=== PATIENT | female | born 1945 | race Caucasian/White ===

== ENCOUNTER 2020-09-14 10:47 | Outpatient (CLI) | payer MEDICARE, BC | END 2020-09-14 10:48 | disposition home or self-care (01) | LOC: CSHMAMMO 10:47 | PROVIDERS: ATTEND Family Medicine | DX: Z12.31 Encounter for screening mammogram for malignant neoplasm of breast (principal) | CPT/HCPCS: 77063; 77067 ==

== ENCOUNTER 2023-02-16 12:54 | Outpatient (CLI) | payer MEDICARE, BC | END 2023-02-16 12:55 | disposition home or self-care (01) | LOC: CSHMAMMO 12:54 | PROVIDERS: ATTEND Internal Medicine | DX: Z12.31 Encounter for screening mammogram for malignant neoplasm of breast (principal); Z80.3 Family history of malignant neoplasm of breast | CPT/HCPCS: 77063; 77067 ==

== ENCOUNTER 2023-06-02 10:54 | Inpatient (IN) | payer MEDICARE ==
[2023-06-02 11:46] LABS: #Eosinphils 0.1 10x3/uL (0.0-0.5); #Neutrophils 4.3 10x3/uL (1.5-8.4); %Basophils 0.4 % (0.0-2.0); %Eosinophils 1.1 % (0.0-6.0); %Lymphocytes 26.2 % (18.0-47.0); %Monocytes 13.5 % (0.0-10.0); %Neutrophils 58.5 % (40.0-75.0); Hematocrit 43.4 % (34.9-44.5); Mean Corpuscular HGB CONC 32.3 g/dL (32.0-36.0); Mean Corpuscular Hemoglobin 28.2 pg (27.0-33.0); Mean Corpuscular Volume 87.5 fl (81.6-98.3); Mean Platelet Volume 10.5 fl (7.4-10.4); Platelet Count 232 10x3/uL (150-450); RBC Distribution Width 12.4 % (11.5-14.5); Red Blood Cell (RBC) Count 4.96 10x6/uL (3.90-5.03); White Blood Cell (WBC) Count 7.3 10x3/uL (3.5-10.5)
[2023-06-02 11:58] LABS: ALT (SGPT) 13 U/L (8-55); AST (SGOT) 16 U/L (5-34); Albumin 4.4 g/dL (3.4-4.8); Alkaline Phosphatase 70 U/L (40-110); Anion Gap 11 mmol/L (10-20); BUN (Urea Nitrogen) 21 mg/dL (9.8-20.1); Bilirubin, Total 0.7 mg/dL (0.2-1.2); Calc. Creatinine Clearance 0 mL/min (70-130); Calcium 9.9 mg/dL (7.8-10.44); Carbon Dioxide 27 mmol/L (23-31); Chloride 105 mmol/L (98-107); Estimated GFR 51; Globulin 2.7 g/dL (2.4-3.5); Glucose 95 mg/dL (83-110); Potassium 4.2 mmol/L (3.5-5.1); Protein, Total 7.1 g/dL (5.8-8.1); Sodium 139 mmol/L (136-145)
[2023-06-02] MEDS ORDERED: Aspirin Chewable 81 MG TAB ONE (11:58)
[2023-06-02 12:04] LABS: Troponin I Less than 0.010 ng/mL (< 0.028)
[2023-06-02 12:48] LABS: SARS-CoV-2 NAA Rapid Test Not Detected (NotDetected)
[2023-06-02 12:50] LABS: Bilirubin Neg (Negative); Blood, Urine 150 (Negative); Clarity Clear (Clear); Glucose, Urine (Dipstick) Normal (Negative); Ketone, Urine 5 mg/dL (Negative); Leukocyte 25 (Negative); Nitrite Negative (Negative); Protein, Urine (Dipstick) 30 mg/dl (Neg-Trace); Specific Gravity, Urine 1.025 (1.005-1.030)
[2023-06-02 13:18] LABS: Bacteria/HPF 3+ HPF (None Seen); CAUTI Indications for Culture Alt mental st,lethar; Mucous/LPF 1+ LPF (<2+); Squamous Epithelial 0-3 HPF (0-3); Urine Culture Reflex No No; WBC/HPF 0-3 HPF (0-3)
[2023-06-02] MEDS ORDERED: cefTRIAXone (ROCEPHIN) 1 GM VIAL ONE (13:39)
[2023-06-02 14:36] LABS: Bilirubin Neg (Negative); Blood, Urine 25 (Negative); Clarity Clear (Clear); Glucose, Urine (Dipstick) Normal (Negative); Ketone, Urine Negative (Negative); Leukocyte Negative (Negative); Nitrite Negative (Negative); Protein, Urine (Dipstick) 30 mg/dl (Neg-Trace); Specific Gravity, Urine 1.025 (1.005-1.030)
[2023-06-02 15:19] LABS: Bacteria/HPF None Seen HPF (None Seen); CAUTI Indications for Culture Alt mental st,lethar; Mucous/LPF 2+ LPF (<2+); RBC/HPF 0-3 HPF (0-3); Squamous Epithelial 0-3 HPF (0-3); Urine Culture Reflex No No; WBC/HPF None Seen HPF (0-3)
[2023-06-02 15:34] LABS: Free T4 (Free Thyroxine) 0.96 ng/dL (0.70-1.48); Thyroid Stimulating Hormone 1.6332 uIU/mL (0.35-4.94)
[2023-06-02] MEDS ORDERED: Ondansetron ODT 4 MG TAB PO PRN (15:42)
[2023-06-02] MEDS ORDERED: hydrALAZINE 20 MG/ML VIAL SLOW IVP PRN (15:42)
[2023-06-02] MEDS ORDERED: Ondansetron PF 4 MG/2 ML Vial IVP PRN (15:42)
[2023-06-02 15:59] LABS: CK (CPK) 98 U/L (29-168)
[2023-06-02 16:45] LABS: CRP (Inflammatory) Less than 0.50 mg/dL (= or < 0.5)
[2023-06-02 18:29] VITALS: BMI 30.3
[2023-06-03] MEDS ORDERED: Cosyntropin 250 MCG VIAL SLOW IVP SCH (05:00)
[2023-06-03 05:12] LABS: #Eosinphils 0.1 10x3/uL (0.0-0.5); #Monocytes 0.9 10x3/uL (0.0-1.1); #Neutrophils 3.4 10x3/uL (1.5-8.4); %Basophils 0.5 % (0.0-2.0); %Eosinophils 1.5 % (0.0-6.0); %Lymphocytes 33.4 % (18.0-47.0); %Monocytes 13.2 % (0.0-10.0); %Neutrophils 51.1 % (40.0-75.0); Hematocrit 37.6 % (34.9-44.5); Hemoglobin 12.5 g/dL (12.0-15.5); Mean Corpuscular HGB CONC 33.2 g/dL (32.0-36.0); Mean Corpuscular Hemoglobin 28.7 pg (27.0-33.0); Mean Corpuscular Volume 86.4 fl (81.6-98.3); Mean Platelet Volume 10.5 fl (7.4-10.4); Platelet Count 202 10x3/uL (150-450); RBC Distribution Width 12.3 % (11.5-14.5); Red Blood Cell (RBC) Count 4.35 10x6/uL (3.90-5.03); White Blood Cell (WBC) Count 6.6 10x3/uL (3.5-10.5)
[2023-06-03 05:27] LABS: Anion Gap 12 mmol/L (10-20); BUN (Urea Nitrogen) 15 mg/dL (9.8-20.1); Calc. Creatinine Clearance 82 mL/min (70-130); Carbon Dioxide 24 mmol/L (23-31); Chloride 107 mmol/L (98-107); Estimated GFR 77; Glucose 105 mg/dL (83-110); Potassium 3.6 mmol/L (3.5-5.1); Sodium 139 mmol/L (136-145)
[2023-06-03] MEDS: Acetaminophen 325 MG TAB PO PRN ×2 (07:03→21:21)
[2023-06-03] MEDS: Aspirin 81 mg Enteric Coated Tablet PO SCH (08:11)
[2023-06-03] MEDS: Enoxaparin 40 MG (0.4 mL) SYRINGE SC SCH (08:11)
[2023-06-03] MEDS ORDERED: Amlodipine 10 MG TAB PO SCH (12:00)
[2023-06-03] MEDS: cefTRIAXone\\ROCEPHIN 1 GM in Sodium Chloride 0.9% 100 ML IVPB SCH (13:21)
[2023-06-03] MEDS: Atorvastatin Calcium 40 MG TAB PO SCH (21:08)
[2023-06-04] MEDS: Acetaminophen 325 MG TAB PO PRN (05:35)
[2023-06-04] MEDS ORDERED: Iopamidol 370 76% 100 ML VIAL ONE (08:15)
[2023-06-04] MEDS ORDERED: Iopamidol 300 61% 100 ML VIAL FS ONE (08:15)
[2023-06-04] MEDS: Aspirin 81 mg Enteric Coated Tablet PO SCH (08:59)
[2023-06-04] MEDS: Clopidogrel Bisulfate 75 MG TAB PO SCH (08:59)
[2023-06-04] MEDS: Ezetimibe 10 MG TAB PO SCH (08:59)
[2023-06-04] MEDS: Fish Oil 1,000 MG CAP PO SCH (08:59)
[2023-06-04] MEDS: Amlodipine 10 MG TAB PO SCH (08:59)
[2023-06-04] MEDS: Hydrochlorothiazide 25 MG TAB PO SCH (09:00)
[2023-06-04] MEDS: Enoxaparin 40 MG (0.4 mL) SYRINGE SC SCH (09:00)
[2023-06-04] MEDS: cefTRIAXone\\ROCEPHIN 1 GM in Sodium Chloride 0.9% 100 ML IVPB SCH (16:16)
[2023-06-04] MEDS: Atorvastatin Calcium 40 MG TAB PO SCH (21:03)
[2023-06-05 07:02] LABS: Cardiac Risk 2.7 (Less than 4.5)
[2023-06-05] MEDS: Hydrochlorothiazide 25 MG TAB PO SCH (09:39)
[2023-06-05] MEDS: Enoxaparin 40 MG (0.4 mL) SYRINGE SC SCH (09:39)
[2023-06-05] MEDS: Aspirin 81 mg Enteric Coated Tablet PO SCH (09:40)
[2023-06-05] MEDS: Amlodipine 10 MG TAB PO SCH (09:40)
[2023-06-05] MEDS: Clopidogrel Bisulfate 75 MG TAB PO SCH (09:40)
[2023-06-05] MEDS: Fish Oil 1,000 MG CAP PO SCH (09:40)
[2023-06-05] MEDS: Ezetimibe 10 MG TAB PO SCH (09:40)
[2023-06-05] MEDS: cefTRIAXone\\ROCEPHIN 1 GM in Sodium Chloride 0.9% 100 ML IVPB SCH (14:31)
[2023-06-05 17:46] VITALS: TEMP 98.3
[2023-06-05] MEDS: Atorvastatin Calcium 40 MG TAB PO SCH (21:54)
[2023-06-06 06:23] VITALS: BP 138/72
[2023-06-06] MEDS: Fish Oil 1,000 MG CAP PO SCH (08:57)
[2023-06-06] MEDS: Hydrochlorothiazide 25 MG TAB PO SCH (08:57)
[2023-06-06] MEDS: Aspirin 81 mg Enteric Coated Tablet PO SCH (08:57)
[2023-06-06] MEDS: Enoxaparin 40 MG (0.4 mL) SYRINGE SC SCH (08:57)
[2023-06-06] MEDS: Clopidogrel Bisulfate 75 MG TAB PO SCH (08:57)
[2023-06-06] MEDS: Amlodipine 10 MG TAB PO SCH (08:57)
[2023-06-06] MEDS: Ezetimibe 10 MG TAB PO SCH (08:57)
== END 2023-06-06 11:03 | DRG 65 ==
LOC: CSHERS 10:54 → CSHERHOLD 14:11 → CSHTELE 17:23 → OBSVTOIN 06-04 18:38
PROVIDERS: ADMIT Internal Medicine; ATTEND Internal Medicine
PROC: 0T9B70Z Drainage of Bladder with Drainage Device, Via Natural or Artificial Opening (ICD-10-PCS; principal; 2023-06-04)
DX: I63.9 Cerebral infarction, unspecified (principal); G95.9 Disease of spinal cord, unspecified; I10 Essential (primary) hypertension; Z86.73 Personal history of transient ischemic attack (TIA), and cerebral infarction without residual deficits; Z11.52 Encounter for screening for COVID-19; E78.5 Hyperlipidemia, unspecified; Z90.710 Acquired absence of both cervix and uterus; Z90.49 Acquired absence of other specified parts of digestive tract; Z79.899 Other long term (current) drug therapy; Z79.82 Long term (current) use of aspirin; H53.2 Diplopia; R00.1 Bradycardia, unspecified; E78.00 Pure hypercholesterolemia, unspecified
CPT/HCPCS: 36415; 70450; 70496; 70498; 70551; 71045; 72141; 80048; 80053; 80061; 80400; 81001; 82550; 83519; 83605; 83880; 84439; 84443; 84484; 85025; 86140; 87040; 93005; 93010; 93306; 96372; 96374; 96375; 96376; G0378; J0360; J0696; J0834; J1650; J3490; Q9967; U0002

== ENCOUNTER 2023-06-30 13:47 | Inpatient (IN) | payer MEDICARE ==
[~2023-06-30 13:47] MED LIST: Iopamidol 300 61% 100 ML VIAL FS ONE
[2023-06-30] MEDS ORDERED: Ondansetron PF 4 MG/2 ML Vial ONE (14:56)
[2023-06-30 15:17] LABS: #Monocytes 0.9 10x3/uL (0.0-1.1); #Neutrophils 5.4 10x3/uL (1.5-8.4); %Basophils 0.4 % (0.0-2.0); %Eosinophils 0.4 % (0.0-6.0); %Lymphocytes 28.9 % (18.0-47.0); %Monocytes 9.9 % (0.0-10.0); %Neutrophils 60.3 % (40.0-75.0); Hematocrit 41.1 % (34.9-44.5); Hemoglobin 13.1 g/dL (12.0-15.5); Mean Corpuscular HGB CONC 31.9 g/dL (32.0-36.0); Mean Corpuscular Hemoglobin 27.9 pg (27.0-33.0); Mean Corpuscular Volume 87.6 fl (81.6-98.3); Mean Platelet Volume 11.9 fl (7.4-10.4); Platelet Count 214 10x3/uL (150-450); RBC Distribution Width 12.3 % (11.5-14.5); Red Blood Cell (RBC) Count 4.69 10x6/uL (3.90-5.03); White Blood Cell (WBC) Count 8.9 10x3/uL (3.5-10.5)
[2023-06-30 15:30] LABS: ALT (SGPT) 21 U/L (8-55); AST (SGOT) 27 U/L (5-34); Albumin 4.7 g/dL (3.4-4.8); Alkaline Phosphatase 70 U/L (40-110); Anion Gap 18 mmol/L (10-20); BUN (Urea Nitrogen) 58 mg/dL (9.8-20.1); Calc. Creatinine Clearance 0 mL/min (70-130); Calcium 10.3 mg/dL (7.8-10.44); Carbon Dioxide 28 mmol/L (23-31); Chloride 109 mmol/L (98-107); Estimated GFR 34; Globulin 3.1 g/dL (2.4-3.5); Glucose 107 mg/dL (83-110); Lipase 71 U/L (8-78); Potassium 3.2 mmol/L (3.5-5.1); Protein, Total 7.8 g/dL (5.8-8.1)
[2023-06-30 15:32] LABS: Critical Call Chemistry NUR.JPM AT1531; Sodium 152 mmol/L (136-145)
[2023-06-30 16:07] LABS: Bilirubin Neg (Negative); Blood, Urine 50 (Negative); Clarity Clear (Clear); Glucose, Urine (Dipstick) Normal (Negative); Ketone, Urine 15 mg/dL (Negative); Leukocyte Negative (Negative); Nitrite Negative (Negative); Protein, Urine (Dipstick) 15 mg/dl (Neg-Trace); Urobilinogen Normal mg/dL (Less than 2)
[2023-06-30 16:26] LABS: CAUTI Indications for Culture Alt mental st,lethar; Squamous Epithelial 0-3 HPF (0-3); WBC/HPF 0-3 HPF (0-3)
[2023-06-30 16:27] LABS: Bacteria/HPF Rare-Few HPF (None Seen); Mucous/LPF 1+ LPF (<2+); Urine Culture Reflex No No
[2023-06-30] MEDS ORDERED: Ondansetron PF 4 MG/2 ML Vial IVP PRN (17:51)
[2023-06-30] MEDS ORDERED: Bisacodyl 5 MG TAB PO PRN (17:51)
[2023-06-30] MEDS ORDERED: Senokot S 8.6-50 MG TAB PO PRN (17:51)
[2023-06-30] MEDS ORDERED: Acetaminophen 325 MG TAB PO PRN (17:51)
[2023-06-30] MEDS ORDERED: Atorvastatin Calcium 40 MG TAB PO SCH (21:00)
[2023-06-30] MEDS: D5 1/2 NS w/20 mEq KCL 1,000 ML IV SCH (21:12)
[2023-06-30] MEDS: Heparin 5,000 UNITS/ML VIAL SC SCH (21:13)
[2023-07-01 05:35] LABS: Cardiac Risk 3.8 (Less than 4.5)
[2023-07-01 08:58] LABS: ALT (SGPT) 19 U/L (8-55); AST (SGOT) 25 U/L (5-34); Albumin 4.1 g/dL (3.4-4.8); Alkaline Phosphatase 61 U/L (40-110); Anion Gap 16 mmol/L (10-20); BUN (Urea Nitrogen) 38 mg/dL (9.8-20.1); Calc. Creatinine Clearance 46 mL/min (70-130); Calcium 9.6 mg/dL (7.8-10.44); Carbon Dioxide 25 mmol/L (23-31); Chloride 113 mmol/L (98-107); Estimated GFR 45; Globulin 2.7 g/dL (2.4-3.5); Glucose 135 mg/dL (83-110); Magnesium 2.3 mg/dL (1.6-2.6); Potassium 3.2 mmol/L (3.5-5.1); Protein, Total 6.8 g/dL (5.8-8.1)
[2023-07-01] MEDS ORDERED: Aspirin 300 MG Suppository PR SCH (09:00)
[2023-07-01] MEDS ORDERED: Clopidogrel Bisulfate 75 MG TAB PO SCH (09:00)
[2023-07-01] MEDS ORDERED: Aspirin 81 mg Enteric Coated Tablet PO SCH (09:00)
[2023-07-01] MEDS ORDERED: Aspirin 325 mg Enteric Coated Tablet PO SCH (09:00)
[2023-07-01 09:26] LABS: Critical Call Chemistry NUR.AKG @ 0926; Sodium 151 mmol/L (136-145)
[2023-07-01 09:42] LABS: Prothrombin Time 42.4 sec (9.5-12.1)
[2023-07-01 09:57] LABS: PTT Greater than 139.0 sec (22.0-33.0)
[2023-07-01 10:17] LABS: #Eosinphils 0.1 10x3/uL (0.0-0.5); #Monocytes 0.8 10x3/uL (0.0-1.1); #Neutrophils 5.3 10x3/uL (1.5-8.4); %Basophils 0.5 % (0.0-2.0); %Eosinophils 0.8 % (0.0-6.0); %Lymphocytes 27.2 % (18.0-47.0); %Monocytes 9.6 % (0.0-10.0); %Neutrophils 61.7 % (40.0-75.0); Hematocrit 36.6 % (34.9-44.5); Hemoglobin 11.8 g/dL (12.0-15.5); Mean Corpuscular HGB CONC 32.2 g/dL (32.0-36.0); Mean Corpuscular Hemoglobin 28.6 pg (27.0-33.0); Mean Corpuscular Volume 88.6 fl (81.6-98.3); Mean Platelet Volume 11.5 fl (7.4-10.4); Platelet Count 171 10x3/uL (150-450); RBC Distribution Width 12.3 % (11.5-14.5); Red Blood Cell (RBC) Count 4.13 10x6/uL (3.90-5.03); White Blood Cell (WBC) Count 8.6 10x3/uL (3.5-10.5)
[2023-07-01] MEDS ORDERED: D5 1/2 NS w/40 mEq KCL 1,000 ML IV SCH (11:00)
[2023-07-01] MEDS: Potassium Chloride 40 MEQ in Dextrose 5% in Water 1,000 ML IV SCH (13:45)
[2023-07-01 17:20] LABS: Anion Gap 12 mmol/L (10-20); BUN (Urea Nitrogen) 29 mg/dL (9.8-20.1); Calc. Creatinine Clearance 55 mL/min (70-130); Carbon Dioxide 27 mmol/L (23-31); Chloride 114 mmol/L (98-107); Estimated GFR 56; Glucose 127 mg/dL (83-110); PTT 25.5 sec (22.0-33.0); Potassium 3.3 mmol/L (3.5-5.1); Prothrombin Time 11.2 sec (9.5-12.1); Sodium 150 mmol/L (136-145)
[2023-07-01] MEDS: Aspirin 300 MG Suppository PR SCH (20:28)
[2023-07-02 03:13] LABS: #Eosinphils 0.1 10x3/uL (0.0-0.5); #Monocytes 0.6 10x3/uL (0.0-1.1); #Neutrophils 3.9 10x3/uL (1.5-8.4); %Basophils 0.4 % (0.0-2.0); %Eosinophils 1.3 % (0.0-6.0); %Monocytes 7.8 % (0.0-10.0); %Neutrophils 53.2 % (40.0-75.0); Hematocrit 33.7 % (34.9-44.5); Hemoglobin 10.8 g/dL (12.0-15.5); Mean Corpuscular Hemoglobin 28.3 pg (27.0-33.0); Mean Corpuscular Volume 88.2 fl (81.6-98.3); Mean Platelet Volume 11.4 fl (7.4-10.4); Platelet Count 149 10x3/uL (150-450); RBC Distribution Width 12.2 % (11.5-14.5); Red Blood Cell (RBC) Count 3.82 10x6/uL (3.90-5.03); White Blood Cell (WBC) Count 7.4 10x3/uL (3.5-10.5)
[2023-07-02 03:25] LABS: INR-International Normal Ratio 1.1; PTT 25.6 sec (22.0-33.0); Prothrombin Time 11.4 sec (9.5-12.1)
[2023-07-02 03:51] LABS: Anion Gap 11 mmol/L (10-20); BUN (Urea Nitrogen) 23 mg/dL (9.8-20.1); Calc. Creatinine Clearance 61 mL/min (70-130); Carbon Dioxide 26 mmol/L (23-31); Chloride 111 mmol/L (98-107); Estimated GFR 64; Glucose 127 mg/dL (83-110); Potassium 3.3 mmol/L (3.5-5.1); Sodium 145 mmol/L (136-145)
[2023-07-02] MEDS: Potassium Chloride 20 MEQ in Lactated Ringer's 1,000 ML IV SCH (10:33)
[2023-07-02] MEDS: Nystatin 500,000 UNITS/5 ML UDCUP SSW SCH (14:43)
[2023-07-02] MEDS: Aspirin Chewable 81 MG TAB PO SCH (14:48)
[2023-07-02 17:38] LABS: Anion Gap 12 mmol/L (10-20); BUN (Urea Nitrogen) 16 mg/dL (9.8-20.1); Calc. Creatinine Clearance 65 mL/min (70-130); Calcium 8.9 mg/dL (7.8-10.44); Carbon Dioxide 25 mmol/L (23-31); Chloride 110 mmol/L (98-107); Estimated GFR 69; Glucose 97 mg/dL (83-110); Potassium 3.7 mmol/L (3.5-5.1); Sodium 143 mmol/L (136-145)
[2023-07-02] MEDS: Lactated Ringer's 1,000 ML IV SCH (18:16)
[2023-07-02 20:31] LABS: Hemoglobin A1c 5.4 % (4.0-6.0)
[2023-07-03 03:13] LABS: #Eosinphils 0.2 10x3/uL (0.0-0.5); #Monocytes 0.6 10x3/uL (0.0-1.1); #Neutrophils 4.5 10x3/uL (1.5-8.4); %Basophils 0.4 % (0.0-2.0); %Eosinophils 1.9 % (0.0-6.0); %Lymphocytes 32.7 % (18.0-47.0); %Monocytes 7.4 % (0.0-10.0); %Neutrophils 57.5 % (40.0-75.0); Hematocrit 34.4 % (34.9-44.5); Hemoglobin 11.2 g/dL (12.0-15.5); Mean Corpuscular HGB CONC 32.6 g/dL (32.0-36.0); Mean Corpuscular Hemoglobin 28.1 pg (27.0-33.0); Mean Corpuscular Volume 86.4 fl (81.6-98.3); Mean Platelet Volume 11.3 fl (7.4-10.4); Platelet Count 151 10x3/uL (150-450); RBC Distribution Width 11.9 % (11.5-14.5); Red Blood Cell (RBC) Count 3.98 10x6/uL (3.90-5.03); White Blood Cell (WBC) Count 7.7 10x3/uL (3.5-10.5)
[2023-07-03 03:28] LABS: PTT 25.4 sec (22.0-33.0); Prothrombin Time 11.2 sec (9.5-12.1)
[2023-07-03 03:47] LABS: Anion Gap 15 mmol/L (10-20); BUN (Urea Nitrogen) 14 mg/dL (9.8-20.1); Calc. Creatinine Clearance 68 mL/min (70-130); Calcium 9.1 mg/dL (7.8-10.44); Carbon Dioxide 22 mmol/L (23-31); Chloride 109 mmol/L (98-107); Estimated GFR 73; Glucose 94 mg/dL (83-110); Magnesium 1.7 mg/dL (1.6-2.6); Potassium 3.4 mmol/L (3.5-5.1); Sodium 143 mmol/L (136-145)
[2023-07-03 04:12] LABS: HIV (1/2) Antibody/Antigen Non-Reactive (NonReactive); HIV 1/2 INDEX 0.13 S/CO (<1.00)
[2023-07-03] MEDS: Clopidogrel Bisulfate 75 MG TAB PO SCH (10:44)
[2023-07-03] MEDS: Aspirin Chewable 81 MG TAB PO SCH (10:44)
[2023-07-03] MEDS: Amlodipine 10 MG TAB PO SCH (16:56)
[2023-07-03] MEDS: Atorvastatin Calcium 40 MG TAB PO SCH (22:49)
[2023-07-03] MEDS: Potassium Bicarbonate/Cit Ac 25 MEQ TAB PO SCH (22:49)
[2023-07-04 06:30] LABS: Anion Gap 14 mmol/L (10-20); BUN (Urea Nitrogen) 13 mg/dL (9.8-20.1); Calc. Creatinine Clearance 73 mL/min (70-130); Calcium 9.3 mg/dL (7.8-10.44); Carbon Dioxide 22 mmol/L (23-31); Chloride 107 mmol/L (98-107); Estimated GFR 79; Glucose 99 mg/dL (83-110); Potassium 3.3 mmol/L (3.5-5.1); Sodium 140 mmol/L (136-145)
[2023-07-04] MEDS: Amlodipine 10 MG TAB PO SCH (08:57)
[2023-07-04] MEDS ORDERED: Potassium Chloride 40 MEQ in Premix 1 BAG IVPB SCH (17:30)
[2023-07-04] MEDS: Potassium Chloride 20 MEQ in Premix 1 BAG IVPB SCH (20:29)
[2023-07-05] MEDS: Potassium Chloride 20 MEQ in Premix 1 BAG IVPB SCH (00:12)
[2023-07-05 02:30] VITALS: BMI 26.0
[2023-07-05] MEDS: Potassium Chloride 20 MEQ TAB PO SCH (09:21)
[2023-07-05] MEDS: Losartan 25 MG TAB PO SCH (11:59)
[2023-07-05] MEDS: Lactated Ringer's 1,000 ML IV SCH (12:01)
[2023-07-06] MEDS: Bisacodyl 10 MG SUPP PR PRN (04:04)
[2023-07-06] MEDS: Losartan 25 MG TAB PO SCH (09:42)
[2023-07-06] MEDS ORDERED: Potassium Chloride 20 MEQ TAB PO SCH (13:30)
[2023-07-06 14:24] LABS: Anion Gap 14 mmol/L (10-20); BUN (Urea Nitrogen) 10 mg/dL (9.8-20.1); Calc. Creatinine Clearance 63 mL/min (70-130); Calcium 9.6 mg/dL (7.8-10.44); Carbon Dioxide 20 mmol/L (23-31); Chloride 108 mmol/L (98-107); Estimated GFR 66; Glucose 116 mg/dL (83-110); Sodium 137 mmol/L (136-145)
[2023-07-06 14:30] LABS: Potassium 4.5 mmol/L (3.5-5.1)
[2023-07-06 18:08] VITALS: BP 155/65; TEMP 98
[2023-07-07] MEDS ORDERED: Fish Oil 1,000 MG CAP PO SCH (09:00)
== END 2023-07-06 19:45 | DRG 64 ==
LOC: CSHERS 13:47 → SUATTDRO 13:47 → CSHTELE 17:53 → OBSVTOIN 07-01 11:18 → CSHIMCU 07-01 14:29 → CSHTELE 07-03 16:08
PROVIDERS: ADMIT Family Medicine; ATTEND Hospitalist
DX: I63.9 Cerebral infarction, unspecified (principal); G93.41 Metabolic encephalopathy; E87.0 Hyperosmolality and hypernatremia; N17.9 Acute kidney failure, unspecified; E78.5 Hyperlipidemia, unspecified; I65.21 Occlusion and stenosis of right carotid artery; E87.6 Hypokalemia; R31.29 Other microscopic hematuria; R13.10 Dysphagia, unspecified; I11.9 Hypertensive heart disease without heart failure; R53.1 Weakness; Z66 Do not resuscitate; B37.9 Candidiasis, unspecified; Z79.899 Other long term (current) drug therapy; Z79.82 Long term (current) use of aspirin; Z98.890 Other specified postprocedural states; Z90.710 Acquired absence of both cervix and uterus; Z90.49 Acquired absence of other specified parts of digestive tract; Z86.73 Personal history of transient ischemic attack (TIA), and cerebral infarction without residual deficits; Z87.891 Personal history of nicotine dependence
CPT/HCPCS: 36415; 36416; 70450; 70551; 71045; 74177; 74230; 80048; 80053; 80061; 81001; 82607; 83036; 83605; 83690; 83735; 85025; 85610; 85730; 86850; 86900; 86901; 87389; 93005; 96372; 96374; G0378; J1644; J2405; J3480; J7070; J7120